=== PATIENT | female | born 2000 | race Caucasian/White ===

== ENCOUNTER → 2019-12-17 | Outpatient (CLI) | payer MEDICAID, SELFPAY ==
[2016-04-25 18:01] VITALS: BMI 35.0
[2019-12-17 11:38] LABS: hCG Titer Quant., Serum 52 mIU/mL (1-3)
== END | disposition home or self-care (01) ==
LOC: WOBLAB 09:07
PROVIDERS: Visit Provider Obstetrics & Gynecology
DX: O20.0 Threatened abortion (principal); Z3A.00 Weeks of gestation of pregnancy not specified
CPT/HCPCS: 36415; 84702

== ENCOUNTER → 2019-12-23 09:54 | Outpatient (CLI) | payer MEDICAID, SELFPAY ==
[2016-04-25 18:01] VITALS: BMI 35.0
[2019-12-23 11:03] LABS: hCG Titer Quant., Serum 1 mIU/mL (1-3)
== END ==
PROVIDERS: Visit Provider Student in an Organized Health Care Education/Training Program
DX: O03.9 Complete or unspecified spontaneous abortion without complication (principal); Z3A.00 Weeks of gestation of pregnancy not specified
CPT/HCPCS: 36415; 84702

== ENCOUNTER 2021-03-08 11:10 | Outpatient (CLI) | payer MEDICAID, SELFPAY ==
[2021-03-10 03:11] LABS: Chlamydia By Nucleic Acid AMP Positive (Negative)
[2021-03-10 08:36] LABS: Gonococcus By Nucleic Acid AMP Negative (Negative)
== END 2021-03-08 23:59 | disposition short-term general hospital (02) ==
LOC: WOBLAB 11:13
PROVIDERS: Visit Provider Obstetrics & Gynecology
DX: Z12.4 Encounter for screening for malignant neoplasm of cervix (principal)
CPT/HCPCS: 87491; 87591; 88175; G0145

== ENCOUNTER → 2021-12-20 | Outpatient (CLI) | payer MEDICAID, SELFPAY ==
[2021-12-20 16:08] LABS: Absolute Lymphocyte Count 2.68 X10^3/uL (0.83-4.51); Absolute Neutrophil Count 6.4 X10^3/uL (2.0-7.7); Basophil# 0.06 X10^3/uL; Basophil% 0.6 % (0-1); Eosinophil# 0.33 X10^3/uL; Eosinophils% 3.3 % (0-5); Hematocrit 42.1 % (37-47); Hemoglobin 14.4 g/dL (12.0-15.0); Lymphocyte # 2.68 X10^3/ul (0.83-4.51); Lymphocyte % 26.6 % (19-41); Mean Corp Hgb Conc 34.2 g/dL (32-36); Mean Corpuscular Hgb 29.1 pg (27.0-32.0); Mean Corpuscular Volume 85.1 fL (81-99); Monocyte% 5.9 % (0-10); NRBC Flagged by Analyzer 0 % (0-5); Neutrophil # 6.38 X10^3/uL (2.7-7.7); Neutrophil % 63.2 % (47-70); Platelet Count 381 K/mm3 (150-450); RBC Distribution Width CV 12.8 % (11.6-14.6); RBC Distribution Width SD 38.5 fl (35.1-43.9); Red Blood Count 4.95 M/mm3 (4.2-5.4); White Blood Count 10.1 K/mm3 (4.4-11.0)
[2021-12-20 17:31] LABS: HIV - WCH Non-Reactive (Nonreactive); Hepatitis B Surface Antigen Non-Reactive (Nonreactive); Hepatitis C Antibody Non-Reactive (Nonreactive); Rubella IgG Reactive (Nonreactive); Syphilis Antibodies Non-reactive
[2021-12-23 09:49] LABS: V-Zoster IgG (Immunity) < 135 index (Immune >165)
[2021-12-25 04:07] LABS: Chlamydia By Nucleic Acid AMP Negative (Negative)
[2021-12-25 17:50] LABS: Gonococcus By Nucleic Acid AMP Negative (Negative)
== END | disposition home or self-care (01) ==
PROVIDERS: Visit Provider Student in an Organized Health Care Education/Training Program
DX: N91.1 Secondary amenorrhea (principal)
CPT/HCPCS: 36415; 85025; 86703; 86762; 86780; 86787; 86803; 87077; 87086; 87088; 87186; 87340; 87491; 87591

== ENCOUNTER → 2022-01-30 | Outpatient (CLI) | payer MEDICAID, SELFPAY | END | disposition home or self-care (01) | LOC: LABSPEC 11:00 | PROVIDERS: Visit Provider Student in an Organized Health Care Education/Training Program | DX: Z34.81 Encounter for supervision of other normal pregnancy, first trimester (principal) | CPT/HCPCS: 87086; 87088 ==

== ENCOUNTER → 2022-03-06 | Outpatient (CLI) | payer MEDICAID, SELFPAY ==
[2022-03-06 11:40] LABS: Hemoglobin A1c 5.2 % (3.8-5.6)
[2022-03-06 12:04] LABS: T4 Free Direct 0.82 ng/dL (0.76-1.46); Thyroid Stim Hormone (TSH) 2.53 uIU/mL (0.358-3.74)
[2022-03-08 03:07] LABS: Dilute Prothrombin Time (dPT) 32.9 sec (0.0-47.6); Dilute Russell Viper Venom 32.2 sec (0.0-47.0); PTT-LA 35.4 sec (0.0-51.9); Thrombin Time 16.4 sec (0.0-23.0); dPT Confirm Ratio 0.95 Ratio (0.00-1.34)
[2022-03-08 19:29] LABS: Anti-Cardiolipin Ab, IgG, Qn < 9 GPL U/mL (0-14); Anti-Cardiolipin Ab, IgM, Qn 10 MPL U/mL (0-12); Interpretation Comment: (.)
[2022-03-08 20:05] LABS: Beta-2-Microglobulin, S 3.1 mg/L (0.6-2.4)
== END | disposition home or self-care (01) ==
LOC: WOBLAB 10:55
PROVIDERS: Visit Provider Student in an Organized Health Care Education/Training Program
DX: O03.9 Complete or unspecified spontaneous abortion without complication (principal)
CPT/HCPCS: 36415; 82232; 83036; 84439; 84443; 86147

== ENCOUNTER → 2022-07-25 | Outpatient (CLI) | payer MEDICAID, SELFPAY ==
[2022-07-25 09:58] LABS: hCG Titer Quant., Serum < 1 mIU/mL (1-3)
[2022-07-27 02:07] LABS: Anti-Cardiolipin Ab, IgG, Qn < 9 GPL U/mL (0-14); Anti-Cardiolipin Ab, IgM, Qn < 9 MPL U/mL (0-12); Dilute Prothrombin Time (dPT) 37.4 sec (0.0-47.6); Dilute Russell Viper Venom 33.4 sec (0.0-47.0); Interpretation Comment: (.); PTT-LA 35.8 sec (0.0-43.5); Thrombin Time 16.8 sec (0.0-23.0); dPT Confirm Ratio 1.12 Ratio (0.00-1.34)
[2022-07-27 16:09] LABS: Beta-2-Microglobulin, S 1.4 mg/L (0.6-2.4)
== END | disposition home or self-care (01) ==
LOC: WOBLAB 08:56
PROVIDERS: Visit Provider Student in an Organized Health Care Education/Training Program
DX: O03.9 Complete or unspecified spontaneous abortion without complication (principal); N91.2 Amenorrhea, unspecified
CPT/HCPCS: 36415; 82232; 84702; 86147